=== PATIENT | female | born 1965 | race American Indian/Alaskan Native ===

== ENCOUNTER 2018-12-19 08:43 | Emergency (ER) | payer SELFPAY ==
[2018-12-19 08:51] VITALS: BP 179/95
--- NOTE | 2018-12-19 09:09 | Emergency Department Report ---
ED General Adult HPI - General Chief complaint: Medical Clearance Stated complaint: BREAST PAIN FOR TWO WEEKS Time Seen by Provider: 12/19/18 09:07 Source: patient Mode of arrival: Ambulatory Limitations: No Limitations - History of Present Illness Initial comments: 53-year-old -Central African female patient without significant past medical history presents with complaints of bilateral breast pain for a few days. She states she has had bilateral breast pain for the past few months and has seen her primary care doctor concerning this. She states 2 months ago her primary care doctor placed her on oral control for possible low estrogen. Patient states she had not had any testing of her hormones done or any other blood work done. She admits to intermittent headaches, but denies any chest pain, shortness of breath, redness/swelling of breath, fever, or purulent drainage. Patient states that she was diagnosed with virus breast tissue a couple of years ago and had a lumpectomy. She denies any history of breast cancer or family history of breast cancer. He shouldn't states a week or so ago she squeezed her left nipple and clear fluid was produced. Patient also states she has had 2 menstrual cycles since starting the OCPs. She states she had previously not had a menstrual cycle in 6 years -: Sudden - Related Data Allergies Allergy/AdvReac Type Severity Reaction Status Date / Time Penicillins Allergy Swelling Verified 12/19/18 08:51 ED Review of Systems ROS: Stated complaint: BREAST PAIN FOR TWO WEEKS Other details as noted in HPI ED Past Medical Hx - Past Medical History Previous Medical History?: Yes - Surgical History Additional Surgical History: lumpectomy - Social History Smoking Status: Never Smoker Substance Use Type: None ED Physical Exam - General Limitations: No Limitations General appearance: alert, in no apparent distress - Head Head exam: Present: atraumatic, normocephalic - Eye Eye exam: Present: normal appearance - ENT ENT exam: Present: mucous membranes moist - Neck Neck exam: Present: normal inspection - Respiratory Respiratory exam: Present: normal lung sounds bilaterally. Absent: respiratory distress - Cardiovascular Cardiovascular Exam: Present: regular rate, normal rhythm - Back Exam Back exam: Present: normal inspection - Neurological Exam Neurological exam: Present: alert, oriented X3 - Psychiatric Psychiatric exam: Present: normal affect ED Course Vital Signs 12/19/18 08:50 Temperature 98.3 F Pulse Rate 86 Respiratory 18 Rate Blood Pressure 179/95 O2 Sat by Pulse 98 Oximetry ED Medical Decision Making - Lab Data Result diagrams: 12/19/18 09:27 12/19/18 09:27 Lab Results 12/19/18 12/19/18 12/19/18 Range/Units 09:27 09:27 09:27 WBC 5.9 (4.5-11.0) K/mm3 RBC 4.21 (3.65-5.03) M/mm3 Hgb 11.5 (10.1-14.3) gm/dl Hct 35.8 (30.3-42.9) % MCV 85 (79-97) fl MCH 27 L (28-32) pg MCHC 32 (30-34) % RDW 13.0 L (13.2-15.2) % Plt Count 345 (140-440) K/mm3 Lymph % (Auto) 45.9 H (13.4-35.0) % Cobb % (Auto) 11.1 H (0.0-7.3) % Eos % (Auto) 1.1 (0.0-4.3) % Baso % (Auto) 0.4 (0.0-1.8) % Lymph # 2.7 (1.2-5.4) K/mm3 Cobb # 0.7 (0.0-0.8) K/mm3 Eos # 0.1 (0.0-0.4) K/mm3 Baso # 0.0 (0.0-0.1) K/mm3 Seg Neutrophils % 41.5 (40.0-70.0) % Seg Neutrophils # 2.4 (1.8-7.7) K/mm3 Sodium 141 (137-145) mmol/L Potassium 3.9 (3.6-5.0) mmol/L Chloride 102.6 (98-107) mmol/L Carbon Dioxide 26 (22-30) mmol/L Anion Gap 16 mmol/L BUN 11 (7-17) mg/dL Creatinine 0.8 (0.7-1.2) mg/dL Estimated GFR > 60 ml/min BUN/Creatinine Ratio 14 % Glucose 96 (65-100) mg/dL Calcium 10.1 (8.4-10.2) mg/dL Total Bilirubin 0.30 (0.1-1.2) mg/dL AST 20 (5-40) units/L ALT 12 (7-56) units/L Alkaline Phosphatase 69 (35-129) units/L Total Protein 7.8 (6.3-8.2) g/dL Albumin 4.2 (3.9-5) g/dL Albumin/Globulin Ratio 1.2 % TSH 0.595 (0.270-4.200) mlU/mL - Radiology Data Radiology results: report reviewed CT HEAD WITHOUT CONTRAST INDICATION / CLINICAL INFORMATION: abnormal headaches, breast tenderness. TECHNIQUE: All CT scans at this location are performed using CT dose reduction for ALARA by means of automated exposure control. COMPARISON: None available. FINDINGS: HEMORRHAGE: None. EXTRA-AXIAL SPACES: Normal in size and morphology for the patient's age. VENTRICULAR SYSTEM: Normal in size and morphology for the patient's age. CEREBRAL PARENCHYMA: No significant abnormality. No acute territorial infarct. MIDLINE SHIFT OR HERNIATION: None. CEREBELLUM / BRAINSTEM: No significant abnormality. ORBITS: Normal as visualized. SOFT TISSUES of HEAD: No significant abnormality. CALVARIUM: No significant abnormality. PARANASAL SINUSES / MASTOID AIR CELLS: Normal as visualized. ADDITIONAL FINDINGS: None. IMPRESSION: 1. No acute intracranial abnormality. - Medical Decision Making Nation presents for bilateral breast tenderness for the past few days, but has been going on for months. Patient was placed on oral contraceptives by her primary care 2 months ago for possible low estrogen as the cause of her breast pain. No acute abnormalities noted on breast exam. CBC and CMP are WNL. TSH is WNL. CT head is without acute abnormalities. Recommend follow-up with breast specialists and informed patient of need for repeat mammogram. Skull strict return precautions in detail with patient who states understanding. Critical care attestation.: If time is entered above; I have spent that time in minutes in the direct care of this critically ill patient, excluding procedure time. ED Disposition Clinical Impression: Breast pain Disposition: DC-01 TO HOME OR SELFCARE Is pt being admited?: No Condition: Stable Instructions: Mammogram (ED) Referrals: MAYANK HIDALGO MD [Referring] - 3-5 Days
--- NOTE | 2018-12-19 09:37 | Cat Scan Report ---
CT HEAD WITHOUT CONTRAST INDICATION / CLINICAL INFORMATION: abnormal headaches, breast tenderness. TECHNIQUE: All CT scans at this location are performed using CT dose reduction for ALARA by means of automated e xposure control. COMPARISON: None available. FINDINGS: HEMORRHAGE: None. EXTRA-AXIAL SPACES: Normal in size and morphology for the patient's age. VENTRICULAR SYSTEM: Normal in size and morphology for the patient's age. CEREBRAL PARENCHYMA: No significant abnormality. No acute territorial infarct. MIDLINE SHIFT OR HERNIATION: None. CEREBELLUM / BRAINSTEM: No significant abnormality. ORBITS: Normal as visualized. SOFT TISSUES of HEAD: No significant abnormality. CALVARIUM: No significant abnormality. PARANASAL SINUSES / MASTOID AIR CELLS: Normal as visualized. ADDITIONAL FINDINGS: None. IMPRESSION: 1. No acute intracranial abnormality. Signer Name: Janusz Smith MD Signed: 12/19/2018 9:32 AM Workstation Name: [id number]
[2018-12-19 09:45] LABS: Basophils % (Auto) 0.4 % (0.0-1.8); Eosinophils # (Auto) 0.1 K/mm3 (0.0-0.4); Eosinophils % (Auto) 1.1 % (0.0-4.3); Hematocrit 35.8 % (30.3-42.9); Hemoglobin 11.5 gm/dl (10.1-14.3); Lymphocytes # (Auto) 2.7 K/mm3 (1.2-5.4); Lymphocytes % (Auto) 45.9 % (13.4-35.0); Mean Corpuscular HGB Conc 32 % (30-34); Mean Corpuscular Volume 85 fl (79-97); Monocytes # (Auto) 0.7 K/mm3 (0.0-0.8); Monocytes % (Auto) 11.1 % (0.0-7.3); Platelet Count 345 K/mm3 (140-440); Red Blood Count 4.21 M/mm3 (3.65-5.03)
[2018-12-19 10:24] LABS: Alanine Aminotransferase 12 units/L (7-56); Albumin 4.2 g/dL (3.9-5); BUN/Creatinine Ratio 14; Blood Urea Nitrogen 11 mg/dL (7-17); Calcium 10.1 mg/dL (8.4-10.2); Hemolysis Index 3
== END 2018-12-19 11:01 | disposition home or self-care (01) ==
LOC: ED 08:43
DX: N64.4 Mastodynia (principal); Z90.13 Acquired absence of bilateral breasts and nipples; Z88.0 Allergy status to penicillin
CPT/HCPCS: 36415; 70450; 80053; 84443; 85025

== ENCOUNTER 2019-02-18 16:59 | Emergency (ER) | payer OTHER ==
--- NOTE | 2019-02-18 17:45 | Event Note ---
ED Screening Note ED Screening Note: CO RLE PAIN AND SWELLING POS STRAIGHT LEG RAISE DENIES DYSURIA NO VAG BLEED OR DC NO FALL PMH FIBROCYSTIC BREAST RX WAS ON BC DUE TO MENOPAUSE --NOW OFF This initial assessment/diagnostic orders/clinical plan/treatment(s) is/are subject to change based on patients health status, clinical progression and re- assessment by fellow clinical providers in the ED. Further treatment and workup at subsequent clinical providers discretion. Patient/guardian urged not to elope from the ED as their condition may be serious if not clinically assessed and managed. Initial orders include: UA US RO DVT
[2019-02-18 17:46] VITALS: BP 148/91
[2019-02-18 18:39] LABS: Bacteria,Urine 1+ /HPF (Negative); Bilirubin,Urine NEG (Negative); Blood,Urine MOD (Negative); Color,Urine Straw (Yellow); Protein,Urine <15 mg/dL mg/dL (Negative); Urobilinogen,Urine < 2.0 mg/dL (<2.0); WBC,Urine < 1.0 /HPF (0.0-6.0)
--- NOTE | 2019-02-18 19:46 | Ultrasound Report ---
US extremity nonvascular RT INDICATION / CLINICAL INFORMATION: RLE PAIN AND SWELLING. COMPARISON: None available. FINDINGS: The right groin was examined to evaluate for pain. An 8 mm right inguinal lymph node is identified. There are no abnormal masses or fluid collections identified in the inguinal region. IMPRESSION: 1. No abnormalities. Signer Name: Zac Martinez MD Signed: 02/18/2019 7:42 PM Workstation Name: [id number]
[2019-02-18] MEDS ORDERED: traMADol 50 MG TAB PO ONE (19:50)
[2019-02-18] MEDS ORDERED: ACETAMINOPHEN 500 MG TAB PO ONE (19:50)
[2019-02-18] MEDS ORDERED: predniSONE 20 MG TAB PO ONE (19:50)
--- NOTE | 2019-02-18 20:33 | Emergency Department Report ---
ED Back Pain/Injury HPI - General Chief Complaint: Back Pain/Injury Stated Complaint: SICK Time Seen by Provider: 02/18/19 17:42 Source: patient Limitations: No Limitations - History of Present Illness Initial Comments: Patient is a 53-year-old female with a history of hypertension who presents to the ED accompanied acute onset persistent nontraumatic low back pain, that hip pain, right knee and right ankle joint pains on the bilateral hand pains with intermittent swelling for the last 1 month. Patient states that in the last 1 week the symptoms are worsened and states that the pain is mainly worse at night when she is asleep. Patient states that the symptoms improved with activity or when she takes a hot shower. Patient denies fall, traumatic injury, chest pain, shortness of breath, fever, chills, dysuria, urinary frequency and urgency, numbness and tingling or weakness of her lower extremities bilaterally, abdominal pain, heavy lifting or urinary and bowel incontinence. MD Complaint: back pain, other (right hip pain, right knee and right ankle joint pains) -: Gradual, month(s) (1) Similar Symptoms Previously: Yes Place: home Radiation: right leg Severity: severe Severity scale (0 -10): 7 Quality: sharp, aching Consistency: constant Improves With: none Worsens With: movement, walking Context: unknown (spontaneous, chronic) Associated Symptoms: denies other symptoms. denies: confusion, chest pain, numbness, difficulty walking, cough, difficulty urinating, diaphoresis, fever/chills, constipation, headaches, abdominal pain, loss of appetite, malaise, nausea/vomiting, rash, seizure, shortness of breath, syncope, other - Related Data Previous Rx's Medication Instructions Recorded Last Taken Type Naproxen 500 mg PO Q12H PRN #24 tablet 02/18/19 Unknown Rx predniSONE [Deltasone] 40 mg PO QDAY #10 tab 02/18/19 Unknown Rx tiZANidine [Zanaflex 4mg TAB] 4 mg PO Q8H PRN #15 tablet 02/18/19 Unknown Rx traMADoL [Ultram] 50 mg PO Q6HR PRN #12 tablet 02/18/19 Unknown Rx Allergies Allergy/AdvReac Type Severity Reaction Status Date / Time Penicillins Allergy Swelling Verified 12/19/18 08:51 ED Review of Systems ROS: Stated complaint: SICK Other details as noted in HPI Constitutional: denies: chills, fever Eyes: denies: eye pain, eye discharge, vision change ENT: denies: ear pain, throat pain Respiratory: denies: cough, shortness of breath, wheezing Cardiovascular: denies: chest pain, palpitations Endocrine: no symptoms reported Gastrointestinal: denies: abdominal pain, nausea, diarrhea Genitourinary: denies: urgency, dysuria, discharge Musculoskeletal: back pain (lower back pain), arthralgia (right hip pain), other (right knee and ankle pain). denies: joint swelling Skin: denies: rash, lesions Neurological: denies: headache, weakness, paresthesias Psychiatric: denies: anxiety, depression Hematological/Lymphatic: denies: easy bleeding, easy bruising ED Past Medical Hx - Surgical History Additional Surgical History: lumpectomy - Social History Smoking Status: Unknown if ever smoked Substance Use Type: None - Medications Home Medications: Home Medications Medication Instructions Recorded Confirmed Last Taken Type Naproxen 500 mg PO Q12H PRN #24 tablet 02/18/19 Unknown Rx predniSONE [Deltasone] 40 mg PO QDAY #10 tab 02/18/19 Unknown Rx tiZANidine [Zanaflex 4mg TAB] 4 mg PO Q8H PRN #15 tablet 02/18/19 Unknown Rx traMADoL [Ultram] 50 mg PO Q6HR PRN #12 tablet 02/18/19 Unknown Rx ED Physical Exam - General Limitations: No Limitations General appearance: alert, in no apparent distress - Head Head exam: Present: atraumatic, normocephalic, normal inspection - Eye Eye exam: Present: normal appearance, PERRL, EOMI Pupils: Present: normal accommodation - ENT ENT exam: Present: normal exam, normal orophraynx, mucous membranes moist, TM's normal bilaterally, normal external ear exam - Neck Neck exam: Present: normal inspection, full ROM. Absent: tenderness - Respiratory Respiratory exam: Present: normal lung sounds bilaterally. Absent: respiratory distress, wheezes, rales, rhonchi, chest wall tenderness, accessory muscle use - Cardiovascular Cardiovascular Exam: Present: regular rate, normal rhythm, normal heart sounds. Absent: systolic murmur, diastolic murmur, rubs, gallop - GI/Abdominal GI/Abdominal exam: Present: soft, normal bowel sounds. Absent: tenderness, guarding, hyperactive bowel sounds, organomegaly, mass - Extremities Exam Extremities exam: Present: normal inspection, full ROM, tenderness (righ hip tenderness; right knee and ankle tenderness), normal capillary refill - Back Exam Back exam: Present: normal inspection, full ROM, tenderness (Palpable lumbosacral paraspinal musculoskeletal tenderness), muscle spasm, paraspinal tenderness - Neurological Exam Neurological exam: Present: alert, oriented X3, CN II-XII intact, normal gait, reflexes normal - Psychiatric Psychiatric exam: Present: normal affect, normal mood - Skin Skin exam: Present: warm, dry, intact, normal color. Absent: rash ED Course Vital Signs 02/18/19 02/18/19 17:43 20:10 Temperature 97.7 F Pulse Rate 82 Respiratory 18 18 Rate Blood Pressure 148/91 O2 Sat by Pulse 100 Oximetry ED Medical Decision Making - Radiology Data Radiology results: report reviewed, image reviewed Right lower extremity Doppler ultrasound shows no evidence of DVT or any abnormalities. - Medical Decision Making This is a 53-year-old female presented to the ED with persistent low back pain, right hip pain, right knee and right ankle pain and bilateral hand pain for the last 1 month, worse in the last 1 week. In the ED, patient is alert and oriented 3 and is not in distress. Right lower extremity Doppler ultrasound shows no acute abnormality including DVT. Urinalysis is unremarkable except for mild hematuria. Because of the patient's history and physical exam findings, patient's symptoms have polyarticular and likely due to degenerative joint disease. Patient was treated for pain in the ED and on reevaluation, patient's pain is well-controlled with medication. Patient discharged home on medications and advised follow-up with her primary care physician in 7-10 days for reevaluation or return to the ED immediately if symptoms get worse. - Differential Diagnosis Bursitis; muscle spasm; osteoarthritis; muscle strain; UTI Critical care attestation.: If time is entered above; I have spent that time in minutes in the direct care of this critically ill patient, excluding procedure time. ED Disposition Clinical Impression: Chronic osteoarthritis, Spasm of muscle of lower back Bursitis of right hip Qualifiers: Hip bursitis location: unspecified Qualified Code(s): M70.71 - Other bursitis of hip, right hip Disposition: TO HOME OR SELFCARE Is pt being admited?: No Does the pt Need Aspirin: No Condition: Stable Instructions: Hip Bursitis (ED), Osteoarthritis (ED), Muscle Spasm (ED) Additional Instructions: Your symptoms are likely due to degenerative joint disease flare affecting multiple joints. Therefore take medications with food, drink plenty of fluids and follow-up with your primary care physician in 7-10 days for reevaluation. Return to the ED immediately if symptoms get worse. Prescriptions: predniSONE [Deltasone] 40 mg PO QDAY #10 tab Naproxen 500 mg PO Q12H PRN #24 tablet PRN Reason: Pain , Severe (7-10) traMADoL [Ultram] 50 mg PO Q6HR PRN #12 tablet PRN Reason: Pain tiZANidine [Zanaflex 4mg TAB] 4 mg PO Q8H PRN #15 tablet PRN Reason: Muscle Spasm Referrals: JOSEFA DAS MD [Staff Physician] - 7-10 days Time of Disposition: 20:32 Print Language: MOHAWK
== END 2019-02-18 20:50 | disposition home or self-care (01) ==
LOC: ED 16:59
DX: M19.90 Unspecified osteoarthritis, unspecified site (principal); M62.830 Muscle spasm of back; M70.71 Other bursitis of hip, right hip; Z98.890 Other specified postprocedural states; Z79.899 Other long term (current) drug therapy; Z88.0 Allergy status to penicillin
CPT/HCPCS: 76881; 81001; 99284; J7512

== ENCOUNTER 2019-07-06 09:43 | Outpatient (CLI) | payer OTHER ==
--- NOTE | 2019-07-06 10:40 | Ultrasound Report ---
EXAMINATION: Left Complete Breast Ultrasound, 07/06/2019 INDICATION: Nonbloody nipple discharge. Also, left breast pain COMPARISON: Left mammogram, 04/08/2019 FINDINGS: Sonographic evaluation of the left breast demonstrates normal-appearing lymph nodes in the axillary region.. Additionally, there is a 6 x 4 x 2 mm oval solid appearing mass in the subareolar r egion, 10:00, which may represent an intraductal mass. No other abnormal findings identified within t he left breast. IMPRESSION: Possible solid 6 mm intraductal mass in the left breast subareolar region, 10:00. Ultraso und-guided biopsy is recommended. Please note patient was also recommended to have a stereotactic right breast biopsy in March 2019. Follow up recommendation: Left ultrasound-guided biopsy. BI-RADS Category 4: Suspicious for Malignancy. Signer Name: Eugenia Wright MD Signed: 07/06/2019 10:36 AM Workstation Name: [id number]
== END 2019-07-06 09:44 | disposition home or self-care (01) ==
LOC: SPVWC 09:43
PROVIDERS: ATTEND Surgery
DX: N64.52 Nipple discharge (principal)

== ENCOUNTER 2019-09-08 06:19 | Day surgery (SDC) | payer OTHER ==
[~2019-09-08 06:19] MED LIST: BUPIVACAINE/PF (0.25%) 2.5 MG/ML 30 ML VIAL INFILTRATI ONE; CELECOXIB 200 MG CAP PO NR; GABAPENTIN 300 MG CAP PO NR; LACTATED RINGERS 1,000 ML IV SCH; LIDOCAINE (1%) 10 MG/1 ML VIAL 20 ML MDV INFILTRATI ONE; MAGNESIUM OXIDE 400 MG TAB PO SCH; MIDAZOLAM 2 MG/2 ML INJ IV NR; VANCOMYCIN/NS 1 GM/250 ML 1 GM/250 ML BAG IV NR; WATER FOR IRRIG STERILE 1,500 ML BOTTLE IR ONE
[2019-09-08] MEDS ORDERED: BACTERIOSTATIC SODIUM CHLORIDE 0.9% 30 ML VIAL INFILTRATI ONE (06:39)
--- NOTE | 2019-09-08 07:24 | Anesthesia Consultation ---
Anesthesia Consult and Med Hx Date of service: 09/08/19 - Airway Anesthetic Teeth Evaluation: Good, Partials ROM Head & Neck: Adequate Mental/Hyoid Distance: Adequate Mallampati Class: Class II Intubation Access Assessment: Probably Good - Pulmonary Exam CTA: Yes - Cardiac Exam Cardiac Exam: RRR - Pre-Operative Health Status ASA Pre-Surgery Classification: ASA1 Proposed Anesthetic Plan: General - Pulmonary Hx Smoking: No Hx Respiratory Symptoms: No - Cardiovascular System Hx Hypertension: No (BP elevated in preop but no prior hx) Hx Heart Attack/AMI: No Hx Percutaneous Transluminal Coronary Angioplasty (PTCA): No - Central Nervous System CVA: No - Gastrointestinal Hx Gastroesophageal Reflux Disease: No - Endocrine Hx Renal Disease: No Hx Liver Disease: No Hx Insulin Dependent Diabetes: No Hx Non-Insulin Dependent Diabetes: No Hx Thyroid Disease: No - Other Systems Hx Cancer: No (fibrocystic breast changes) - Additional Comments Anesthesia Medical History Comments: No prior GA or FHx anesthetic complicat ions. Patient refuses blood products.
[2019-09-08] MEDS ORDERED: ONDANSETRON 4 MG/2 ML INJ IV PRN (07:25)
[2019-09-08] MEDS ORDERED: HYDROmorphone 1 MG/1 ML INJ IV PRN (07:25)
--- NOTE | 2019-09-08 07:25 | Anesthesia Day of Surgery ---
Anesthesia Day of Surgery - Day of Surgery Patient Examined: Yes Patient H&P Reviewed: Yes Patient is NPO: Yes
[2019-09-08] MEDS ORDERED: BUPIVACAINE/PF (0.25%) 2.5 MG/ML 30 ML VIAL INFILTRATI ONE ×2 (07:29→09:41)
[2019-09-08] MEDS ORDERED: LIDOCAINE (1%) 10 MG/1 ML VIAL 20 ML MDV ONE ×2 (07:29→07:42)
[2019-09-08] MEDS ORDERED: ePHEDrine SULFATE 50 MG/1 ML INJ ONE (07:37)
[2019-09-08] MEDS ORDERED: SUCCINYLCHOLINE CHLORIDE 200 MG/10 ML INJ MDV ONE (07:42)
[2019-09-08] MEDS ORDERED: dexAMETHasone 20 MG/5 ML VIAL ONE (07:42)
[2019-09-08] MEDS ORDERED: ONDANSETRON 4 MG/2 ML INJ ONE (07:42)
[2019-09-08] MEDS ORDERED: PHENYLEPHRINE/NS 1,000 MCG/10 ML SYRINGE (OR USE) IV ONE (07:42)
[2019-09-08] MEDS ORDERED: LIDOCAINE MPF (2%) 20 MG/1 ML VIAL 5 ML ONE (07:42)
[2019-09-08] MEDS ORDERED: ROCURONIUM 50 MG/5 ML INJ IV ONE (07:42)
[2019-09-08] MEDS ORDERED: NEOSTIGMINE 10MG/10 ML INJ MDV ONE (07:42)
[2019-09-08] MEDS ORDERED: GLYCOPYRROLATE 0.4 MG/2 ML INJ ONE (07:42)
[2019-09-08] MEDS ORDERED: propofoL 200 MG/20 ML VIAL IV ONE (07:43)
[2019-09-08] MEDS ORDERED: fentaNYL 100 MCG/2 ML INJ ONE (07:43)
[2019-09-08] MEDS ORDERED: LIDOCAINE (1%) 10 MG/1 ML VIAL 20 ML MDV INFILTRATI NR (08:33)
[2019-09-08] MEDS ORDERED: HYDROmorphone 1 MG/1 ML INJ ONE (09:23)
[2019-09-08] MEDS ORDERED: SODIUM CHLORIDE 0.9% IRR 1,500 ML BOTTLE IR ONE (09:39)
[2019-09-08] MEDS ORDERED: LIDOCAINE (1%) 10 MG/1 ML VIAL 20 ML MDV INFILTRATI ONE (09:41)
--- NOTE | 2019-09-08 10:19 | Operative Report ---
Operative Report Operative Report: Operative Report: September 08, 2019 Preoperative diagnosis: Left breast intraductal papilloma Postoperative diagnosis: Same Procedure: Left needle localization breast mass excisional biopsy of intraductal papilloma Surgeon: Tram Ocasio MD Anesthesia: General Findings: Left wire and clip present within radiograph specimen Complications: None EBL: Minimal (less than 50 cc) Disposition: PACU in good condition Indications for operative procedure: This is a 54 year old lady with spontaneous left clear nipple discharge. Recent left breast ultrasound with findings of SA mass. Right breast ultrasound guided needle core biopsy with findings of an intraductal papilloma. Recommendations are to proceed with a left breast mass excisional biopsy given breast cancer risk association. She wished to proceed with the above procedure. Patient also with suspicious right breast m icrocalcifications and recommendations for stereotactic breast biopsy and patient has declined. She understands her risk for breast cancer given suspicious microcalicifications. Procedure in detail: The patient was taken to radiology for wire placement for localization known area of left breast intraductal papillioma. Patient was then taken to the operating room. Gen. anesthesia was administered. Left breast was prepped and draped in the normal sterile operative fashion. The wire was identified. Timeout was performed. Ultrasound was used as well to localize the area of concern. Attention was then taken towards the left breast. A medial subareolar breast incision was made around the 10:00 position with a 15 blade knife and dissection taken down to subcutaneous tissues. First began raising of the lateral flap with removal of the wire from the skin with dissection take down posteriorly past the wire, followed by raising of the medial flap, superior flap and inferior flap with all flaps taken down posteriorly past the wire. The breast area of concern was appropriately removed posteriorly with the aid of the Bovie cautery. The wire was not encountered. Specimen was marked and then sent to pathology and radiology; radiograph specimen with wire and clip present. Breast cavity was irrigated and hemostasis was obtained. The posterior deep breast tissues were approximated and closed using interrupted 3-0 Vicryl. The subcutaneous tissues were approximated and closed using interrupted 3-0 Vicryl followed by closing of the skin with a running 4-0 Monocryl and skin affix. The patient tolerated surgery very well and she was awaken from anesthesia without any complication and transported to PACU in good condition.
--- NOTE | 2019-09-08 10:23 | Short Stay Summary ---
Short Stay Documentation Date of service: 09/08/19 - History H&P: obtained from office - Allergies and Medications Current Medications: Allergies copper Allergy (Verified 09/08/19 06:28) Unknown Penicillins Allergy (Verified 08/27/19 11:38) Anaphylaxis Home Medications Medication Instructions Recorded Confirmed Last Taken Type Cholecalciferol (Vitamin D3) 125 mcg PO DAILY 08/27/19 08/27/19 09/07/19 History [Vitamin D3] Glucos Sul 2Kcl/MSM/Chond/C/Mn 1 each PO 08/27/19 09/07/19 History [Glucosamine Chondroitin Cap] HYDROcodone/APAP 5-325 [[place] 1 each PO Q6HR PRN #15 tablet 09/08/19 Unknown Rx 5/325] Active Medications Celecoxib (Celebrex) 200 mg PO PREOP NR Stop: 09/08/19 23:59 Last Admin: 09/08/19 08:15 Dose: 200 mg Documented by: Gabapentin (Gabapentin) 600 mg PO PREOP NR Stop: 09/08/19 23:59 Last Admin: 09/08/19 08:15 Dose: 600 mg Documented by: Hydromorphone HCl (Dilaudid) 0.5 mg IV Q10MIN PRN PRN Reason: Pain , Severe (7-10) Stop: 09/08/19 23:00 Vancomycin HCl (Vancomycin/Ns 1 Gm/250 Ml) 1 gm in 250 mls @ 166.667 mls/hr IV PREOP NR; Protocol Stop: 09/08/19 22:00 Last Admin: 09/08/19 08:22 Dose: 166.667 mls/hr Documented by: Lactated Ringer's (Lactated Ringers) 1,000 mls @ 100 mls/hr IV DIRECT GABY Stop: 09/08/19 23:59 Last Admin: 09/08/19 08:15 Dose: 100 mls/hr Documented by: Lidocaine (Xylocaine 1% 20 Ml) 20 ml INFILTRATI ONCE NR Stop: 09/08/19 12:00 Magnesium Oxide (Mag-Ox) 400 mg PO PREOP GABY Stop: 09/08/19 23:59 Last Admin: 09/08/19 08:15 Dose: 400 mg Documented by: Midazolam HCl (Versed) 2 mg IV PREOP NR Stop: 09/08/19 23:59 Last Admin: 09/08/19 08:21 Dose: 2 mg Documented by: Ondansetron HCl (Zofran) 4 mg IV ONCE PRN PRN Reason: Nausea And Vomiting Stop: 09/08/19 23:00 - Brief post op/procedure progress note Date of procedure: 09/08/19 Pre-op diagnosis: Left breast intraductal papilloma Post-op diagnosis: same Procedure: Left breast mass-intraductal papilloma excisional biopsy Anesthesia: GETA Findings: Left wire and clip present within radiograph specimen Surgeon: CUHCK SMITH Estimated blood loss: minimal Pathology: list (left breast excisional biopsy) Specimen disposition: to lab Condition: stable - Disposition Condition at discharge: Good Disposition: DC-01 TO HOME OR SELFCARE Short Stay Discharge Plan Activity: other (no heavy lifting) Diet: regular Wound: keep clean and dry (wear breast binder; may shower in 48 hours; no baths, pools or lakes) Follow up with: JOSEFA DAS MD [Primary Care Provider] - 7 Days CHUCK SMITH MD [Staff Physician] - 7 Days Prescriptions: HYDROcodone/APAP 5-325 [[place] 5/325] 1 each PO Q6HR PRN #15 tablet PRN Reason: Pain
--- NOTE | 2019-09-08 10:52 | XRay Report ---
Surgical specimen evaluation following left breast needle localization INDICATION: BREAST CANCER. COMPARISON: Left breast ultrasound from 07/06/2019 IMPRESSION: Surgical specimen is completely contained within the provided sample. Satisfactory appea rayne. The wire and clip have also been completely removed and are visible on this exam. Signer Name: Mich Sims MD Signed: 09/08/2019 10:47 AM Workstation Name: [id number]
--- NOTE | 2019-09-08 11:00 | Mammography Report ---
Left BREAST NEEDLE LOCALIZATION USING MAMMOGRAPHIC GUIDANCE The procedure was explained to the patient and informed consent obtained. PROCEDURE: Using for mL of 1% lidocaine, a 25 gauge needle and mammographic guidance, the subareolar nodule and biopsy clip were localized with standard needle/wire technique. There were no immediate c omplications. INTERPRETATION: One image made during the procedure demonstrate the needle to be properly positioned . IMPRESSION: Left subareolar breast lesion localization as described above. Thank you for allowing us to participate in the care of your patient. Signer Name: Mich Sims MD Signed: 09/08/2019 10:56 AM Workstation Name: [id number]
[2019-09-08 11:23] VITALS: BP 119/68
--- NOTE | 2019-09-08 14:19 | Post Anesthesia Evaluation ---
- Post Anesthesia Evaluation Patient Participated: Yes Airway Patent: Yes Stable Respiratory Function: Yes Nausea/Vomiting: No Temp > 96.8F: Yes Pain Manageable: Yes Adequeate Hydration: Yes Anesthesia Complications: No
== END 2019-09-08 11:40 | disposition home or self-care (01) ==
LOC: OR 06:19
PROVIDERS: ATTEND Surgery
DX: D24.2 Benign neoplasm of left breast (principal); Z11.59 Encounter for screening for other viral diseases; N60.12 Diffuse cystic mastopathy of left breast; R92.0 Mammographic microcalcification found on diagnostic imaging of breast; Z79.899 Other long term (current) drug therapy; Z88.0 Allergy status to penicillin; Z88.8 Allergy status to other drugs, medicaments and biological substances
CPT/HCPCS: 19125; 19281; 76098; 82962; 88307; J0330; J1100; J1170; J2250; J2370; J2405; J2704; J2710; J3010; J3370; J7120; U0003